=== PATIENT | male | born 1980 | race Caucasian/White ===

== ENCOUNTER 2023-02-20 12:44 | Emergency (ER) | payer OTHER ==
[2023-02-20 13:01] VITALS: BP 135/75; PULSE 75
== END 2023-02-20 12:57 | disposition home or self-care (01) ==
LOC: DL.ED 12:44
DX: S70.352A Superficial foreign body, left thigh, initial encounter (principal); W45.8XXA Other foreign body or object entering through skin, initial encounter
CPT/HCPCS: 99282